=== PATIENT | female | born 1935 | race Caucasian/White ===

== ENCOUNTER 2018-02-18 09:58 | Emergency (ER) | payer MEDICARE, OTHER ==
[~2018-02-18] VITALS: Ht 162.6 cm; Wt 85.7 kg
[~2018-02-18 09:58] MED LIST: ATEN50TA OR
[2018-02-18 11:21] VITALS: BP 158/70
== END 2018-02-18 12:23 | disposition home or self-care (01) ==
LOC: ER 09:58 → EDSEX 09:58 → ER 12:23
DX: B02.9 Zoster without complications (principal); E78.5 Hyperlipidemia, unspecified; I10 Essential (primary) hypertension; R42 Dizziness and giddiness
CPT/HCPCS: 70450